=== PATIENT | female | born 1985 | race Caucasian/White ===

== ENCOUNTER 2017-10-08 15:55 | Emergency (ER) | payer OTHER ==
[~2017-10-08] VITALS: Ht 167.6 cm; Wt 68.0 kg
--- NOTE | 2017-10-08 16:11 | NUR ---
ABRASION TO L EYEBROW S/P UNWITNESSED SEIZURE FROM HOME . SEZIURE PRECAUTION IN PLACED. ON LAN/WAN ENGINEER. AWAITING MD ORDER
[2017-10-08] MEDS: IV NS 0.9% 1,000 ML BAG IV ONE ×2 (16:30→19:47)
[2017-10-08] MEDS: ONDANSETRON HCL/PF 4 MG/2 ML VIAL IVP ONE (16:35)
--- NOTE | 2017-10-08 16:35 | NUR ---
LAC #18 IV ACCESS. BLOOD SAMPLE COLLECTED SENT TO LAB
[2017-10-08] MEDS ORDERED: ACETAMINOPHEN ES 500 MG TABLET ONE (16:37)
[2017-10-08] MEDS ORDERED: ONDANSETRON HCL/PF 4 MG/2 ML VIAL ONE (16:37)
[2017-10-08 16:38] LABS: BASOPHILS # (AUTO) 0.1 /CMM (0.0-0.2); BASOPHILS % (AUTO) 0.9 % (0.0-2.0); EOSINOPHILS # (AUTO) 0.1 /CMM (0.0-0.7); EOSINOPHILS % (AUTO) 0.9 % (0.0-6.0); HEMATOCRIT 39 % (33-45); HEMOGLOBIN 13.5 g/dL (11.5-14.8); LYMPHOCYTES # (AUTO) 1.4 /CMM (0.8-4.8); LYMPHOCYTES % (AUTO) 16.1 % (20.0-44.0); MEAN CORPUSCULAR HEMOGLOBIN 32 PG (26.0-33.0); MEAN CORPUSCULAR HGB CONC 35 g/dl (31.0-36.0); MEAN CORPUSCULAR VOLUME 91 fL (82-100); MONOCYTES # (AUTO) 0.4 /CMM (0.1-1.30); MONOCYTES % (AUTO) 5.2 % (2.0-12.0); NEUTROPHILS # (AUTO) 6.6 /CMM (1.8-8.9); NEUTROPHILS % (AUTO) 76.9 % (43.0-81.0); PLATELET COUNT (AUTO) 216 /CMM (150-450); RDW COEFFICIENT OF VARIATION 11.9 (11.5-15.0); WHITE BLOOD COUNT (AUTO) 8.6 K/uL (4.3-11.0)
--- NOTE | 2017-10-08 16:43 | NUR ---
EKG IN PROGRESS
[2017-10-08] MEDS: ACETAMINOPHEN ES 500 MG TABLET PO ONE (16:46)
[2017-10-08 16:52] LABS: CALCIUM, SERUM 9.3 mg/dL (8.5-10.1); CREATININE 0.9 mg/dL (0.6-1.3); POTASSIUM 3.5 mmol/L (3.5-5.1)
[2017-10-08 16:54] LABS: INR 0.99 (0.87-1.13)
[2017-10-08 16:58] LABS: BILIRUBIN,DIRECT 0.1 mg/dL (0.0-0.2); BILIRUBIN,TOTAL 0.5 mg/dL (0.2-1.0); TOTAL PROTEIN, SERUM 7.2 g/dL (6.4-8.2)
[2017-10-08 18:14] LABS: APPEARANCE,URINE Clear (CLEAR); BILIRUBIN,URINE Negative (NEGATIVE); BLOOD, URINE Negative Ery/uL (NEGATIVE); COLOR,URINE Yellow (YELLOW); KETONES,URINE Negative (NEGATIVE); LEUKOCYTE ESTERASE ,URINE Negative (NEGATIVE); NITRITE, URINE Negative (NEGATIVE); PH,URINE 8.5 (5.0-8.0); PROTEIN,URINE Negative (NEGATIVE); UGLUCOSE Negative (NEGATIVE); UROBILINOGEN,URINE 0.2 EU/dL (0.2)
--- NOTE | 2017-10-08 19:29 | NUR ---
GAVE REPORT TO NURYS FOR [facility]MA
--- NOTE | 2017-10-08 21:55 | NUR ---
IV removed. Catheter intact and site benign. Pressure and 4x4 applied to site. No bleeding noted. Patient discharged to home in stable condition. Written and verbal after care instructions given. Patient verbalizes understanding of instruction.
[2017-10-08 21:56] VITALS: BP 104/59
== END 2017-10-08 21:57 | disposition home or self-care (01) ==
LOC: ER 16:00
DX: S05.12XA Contusion of eyeball and orbital tissues, left eye, initial encounter (principal); S00.81XA Abrasion of other part of head, initial encounter; S00.512A Abrasion of oral cavity, initial encounter; G40.909 Epilepsy, unspecified, not intractable, without status epilepticus; W22.8XXA Striking against or struck by other objects, initial encounter; Y93.89 Activity, other specified; Y92.89 Other specified places as the place of occurrence of the external cause; Y99.8 Other external cause status
CPT/HCPCS: 36415; 70450-TC; 70486-TC; 71045-TC; 80048-TC; 80076-TC; 80305; 81000-TC; 82962-TC; 84443-TC; 84703-TC; 85025-TC; 85730-TC; A4606; J2405; J7030; Z7610